=== PATIENT | female | born 1935 | race Caucasian/White ===

== ENCOUNTER 2017-03-13 20:01 | Inpatient (IN) | payer OTHER, BC ==
[~2017-03-13] VITALS: Ht 147.3 cm; Wt 53.2 kg
--- NOTE | ~2017-03-13 | HC ---
[facility] [place] [address] CONSULTATION Name: VINOD HIGHTOWER Room #: 247-P ADM IN M.R.#: [id number] Admission: 03/13/17 Attend Phys: Kurtis Zhang MD Discharge: Date of : 37 Report #: [id number] THIS REPORT FOR: //name// CC: FAM unknown Robbie Garvin Chino Boyd DATE OF SERVICE: 03/14/2017 NEPHROLOGY CONSULTATION REASON FOR CONSULTATION: Acute on chronic kidney disease. HISTORY OF PRESENT ILLNESS: This 81-year-old patient with longstanding diabetes and some degree of underlying kidney disease has presented with a one-week history of nausea, vomiting and daily diarrhea. She has become progressively weak. She has chronic memory impairment and this has been worse. This syndrome persisted and she was brought to the Emergency Room. She was found to have very high creatinine and BUN. According to her , she has been seeing Dr. Goff on a once yearly bases, which would suggest that her underlying kidney disease is not particularly severe. He thinks that Dr. Goff has diagnosed kidney disease due to diabetes. PAST MEDICAL HISTORY: She has had previous coronary bypass, remotely at [facility]. She has had a history of hypertension, dyslipidemia, and hypothyroidism. She also has had sections. HOME MEDICATIONS: Include atorvastatin 40 mg daily, clopidogrel 75 mg daily, citalopram 10 mg daily, insulin, levothyroxine 0.05 mg daily, lisinopril 40 mg daily, metoprolol tartrate 100 mg daily, a bisphosphonate once weekly I believe and Actonel. FAMILY HISTORY: Negative for renal disease and diabetes. SOCIAL HISTORY: No cigarettes or alcohol. Lives at home with her , looks after her. REVIEW OF SYSTEMS: GENERAL: She has been weak and feeling poorly. EYES: Her vision is okay with corrective lenses. ENT: Hearing okay. Denies mouth sores or ulcers. ENDOCRINE: Positive for diabetes and thyroid disease, on replacement. RESPIRATORY: She denies shortness of breath, pleuritic pain or hemoptysis. CARDIAC: Denies chest pain, palpitations or swelling. GASTROINTESTINAL: Positive for nausea, vomiting, diarrhea, but no abdominal pain, poor intake. [facility] [address] [place] [address] CONSULTATION Name: VINOD HIGHTOWER Room #: 247-P [facility] IN M.R.#: [id number] Admission: 03/13/17 Attend Phys: Kurtis Zhang MD Discharge: Date of : 37 Report #: [id number] GENITOURINARY: Denies dysuria or hematuria. Denies history of renal stones. NEUROLOGIC: She says she has had some sort of stroke in the past, but her does not mention and she cannot give specific details. Denies neuropathy or problems with her eyes from the diabetes. She apparently does have memory impairment according to her and my history from her certainly would suggest that is true, although she has acutely ill. PSYCHIATRIC: She is on an antidepressant, I cannot really comment further. Extensive history taken from the patient, patient's and from the electronic medical record. PHYSICAL EXAMINATION: VITAL SIGNS: Somewhat ill appearing, somewhat pale elderly patient, does not appear to be in any acute distress, seen in the ICU. SKIN: Slightly decreased turgor. SKELETAL: Well developed, well nourished, nonobese. HEENT: Extraocular movements full. Vision and hearing intact. Mucous membranes are dry. NECK: Supple, no JVD, carotid bruits or lymphadenopathy. CHEST: Completely clear to auscultation. HEART: Regular without murmurs, gallops or rubs. ABDOMEN: Soft and nontender, without bruits, masses or organomegaly. EXTREMITIES: Show intact pulses. No edema. NEUROLOGIC: Moves all extremities. Memory is somewhat diminished. LABORATORY DATA: The urinalysis did show 2+ protein, 3+ blood, and was very concentrated. White cells and bacteria there as well. The hemoglobin is 13.3, then 12.7. This morning, white count 19.9 and the differential showed no bands. Platelets were 173. Initial sodium 135, potassium 5.1, chloride 103, and bicarbonate 8. This morning, the bicarbonate is 12, chloride is 108 and the sodium is 140, the creatinine is down to 9.2 and sodium from 131, down to 121. Liver functions are okay. Albumin is 2.7. No phosphorus has been assessed at this point. ASSESSMENT: 1. Acute on chronic kidney disease. I suspect her underlying chronic kidney disease is relatively mild as she only sees Dr. Goff once yearly. I will be checking our office records in detail for further inflammation regarding her underlying kidney issues, her acute injury seems to be related to a severe gastrointestinal illness and volume depletion with low blood pressure. The lisinopril at 40 mg per day may certainly contribute to the setting of volume depletion to a prolonged and slow recovery, but likely she will recover with IV fluids adding bicarbonate and not require dialysis or anything of this sort. We will continue that plan. I will check urine sodium and creatinine. She will get a renal sonogram for completeness and paraprotein studies as well as urine protein evaluation. We will follow her carefully and hopefully to see continued recovery and improvement. [facility] [address] [place] [address] CONSULTATION Name: VINOD HIGHTOWER Room #: 247-P [facility] IN .R.#: [id number] Admission: 03/13/17 Attend Phys: Kurtis Zhang MD Discharge: Date of : 36 Report #: [id number] 2. Longstanding diabetes mellitus. 3. History of coronary bypass. 4. Cognitive impairment. <ELECTRONICALLY SIGNED> By: Matthew Rao MD 03/16/17 0718 6 [id number] Robbie Garvin MD /nt
--- NOTE | ~2017-03-13 | H ---
[facility] [place] [address] HISTORY AND PHYSICAL Name: VINOD HIGHTOWER Room #: 446-P ADM IN M.R.#: [id number] Admission: 03/13/17 Attend Phys: Kurtis Zhang MD Discharge: Date of : 36 Report #: [id number] THIS REPORT FOR: //name// CC: FAM unknown Robbie Boyd ATTENDING PHYSICIAN: Dr. Chino Boyd. PRIMARY CARE PHYSICIAN: Dr. Atilio Chinchilla CHIEF COMPLAINT: High blood sugars, decreased appetite. HISTORY OF PRESENT ILLNESS: The patient is an 81-year-old female who has some mild dementia. She apparently had been having 3-4 days of decreased appetite with poor oral intake and high blood sugars. She apparently was still taking her insulin. She has also been having increased frequency of diarrhea. Apparently, she always does have some looser stools with a history of some possible IBS, but her son states that she was having more stools than usual and complained of some abdominal pain. She had not been having any fevers as far as they are aware. EMS was called and she was found to have a blood sugar of 500, was brought into the ER. Her sons are providing most of the history. They do state that she has some chronic kidney disease, they did not know her baseline creatinine, but she has been following with a compensation agent, Dr. Goff for at least 2 years. She has never been on dialysis and apparently her kidneys have been stable. She is currently denying any pain. She remains confused. She thinks it is October 2013, but overall she attempts to answer questions and is able to follow commands. She was evaluated in the ER and admitted for further treatment. PAST MEDICAL HISTORY: Diabetes, dementia, coronary artery disease, hypertension, hyperlipidemia, hypothyroidism. PAST SURGICAL HISTORY: CABG times 5 vessels, left hip repair, left shoulder repair. ALLERGIES: Her son states that she had an anaphylactic reaction, he thinks to MOTRIN, but they are not quite sure, but it should be on their records at [facility]. HOME MEDICATIONS: Plavix 75 mg p.o. daily, Lipitor 40 mg p.o. at bedtime, metoprolol 100 mg p.o. daily, lisinopril 40 mg p.o. daily, Lexapro 10 mg p.o. daily, Lantus unknown dose each evening and Humalog insulin unknown dose a.c. and at bedtime, levothyroxine 50 mcg daily, risedronate 35 mg weekly. SOCIAL HISTORY: The patient lives at home with her spouse. She normally ambulates with a walker. She has a remote history of smoking, but quit over [address] [address] HISTORY AND PHYSICAL Name: VINOD HIGHTOWER Room #: 446-P [facility] IN M.R.#: [id number] Admission: 03/13/17 Attend Phys: Kurtis Zhang MD Discharge: Date of : 37 Report #: [id number] years ago. No alcohol use. Her sons state that they are in the process of looking into some assisted living facility for their mother and father. FAMILY HISTORY: Unobtainable due to altered mental status. REVIEW OF SYSTEMS: Unobtainable due to altered mental status. PHYSICAL EXAMINATION: GENERAL: The patient is an alert, but confused female in no acute distress. VITAL SIGNS: Temperature is 36.5, heart rate 83, respirations 16, blood pressure is 102/36 and oxygen is 97% on room air. HEENT: PERRLA. Sclerae is nonicteric. Oral mucosa is pink and dry. Lips are cracked. NECK: Supple, no JVD noted. CARDIAC: Normal S1, S2. No murmurs, rubs or gallops. RESPIRATORY: Breath sounds are clear bilaterally. No wheezing or rhonchi. Breathing is nonlabored. ABDOMEN: Soft, nondistended, nontender with positive bowel sounds. VASCULAR: No edema noted. She does have cool feet with pedal pulses of 1+. NEUROLOGIC: The patient is somewhat sleepy, but arouses to voice and then remains alert and able to follow commands. She was able to move all extremities equally. She is confused and thinks it is October 2013, but she was aware she was in the hospital and was able to recognize her sons. LABORATORY DATA AND DIAGNOSTICS: WBC is 19.9, hemoglobin 13.3, and platelets 209 with sodium 135, potassium 5.1, BUN 131, creatinine 11.1, glucose 470, anion gap is 24 and troponins negative and ABG showed a pH of 7.13, pCO2 of 22.8, pO2 100 and bicarbonate of 7.5. Lactate is 1.54. UA showed negative ketones, 3+ blood, 2+ protein, 2+ leukocyte esterase, many wbc's and moderate bacteria with trace random glucose. Chest x-ray showed no acute process. ASSESSMENT AND PLAN: 1. Acute renal failure on chronic kidney disease, most recent creatinine is unavailable. We will consult renal for further evaluation and check a renal ultrasound in the morning to further evaluate. She is very acidotic and she is currently on a bicarbonate drip per Renal. Follow labs. 2. Metabolic acidosis due to renal failure. She does have an elevated anion gap, but no ketones in the urine, so this is less likely related to diabetic ketoacidosis. Nephrology is consulted. Continue with bicarbonate drip and repeat an ABG in the morning. 3. Urinary tract infection. We will continue with Zosyn and follow urine culture. 4. Diarrhea. Stool will be sent for Clostridium difficile and culture, her sons do not think she had any recent antibiotic use. 5. Altered mental status. This is likely due to toxic encephalopathy due to urinary tract infection as well as metabolic encephalopathy due to renal failure [facility] [address] [place] [address] HISTORY AND PHYSICAL Name: VINOD HIGHTOWER Room #: 446-P [facility] IN ..#: [id number] Admission: 03/13/17 Attend Phys: Kurtis Zhang MD Discharge: Date of : 36 Report #: [id number] as well as underlying dementia. Continue to monitor. 6. Diabetes type 2, this is uncontrolled. She is not in diabetic ketoacidosis at this time. We will hold off on an insulin drip, but continue with IV fluids and check a hemoglobin A1c, add Accu-Cheks and insulin sliding scale for now, hold off on her home insulin doses until we can clarify her home insulin doses with her pharmacy in the morning. 7. History of hypertension. She is currently hypotensive, which may have contributed to her renal failure. Hold home blood pressure meds and continue with IV fluids. 8. History of coronary artery disease. Troponin is negative and she is denying any chest pain. 9. Hypothyroidism. Check TSH level. Continue Synthroid. 10. Deep venous thrombosis prophylaxis, place sequential compression devices. We will continue to follow the patient closely throughout the hospitalization and make changes based on clinical status. <ELECTRONICALLY SIGNED> By: DEUCE Montgomery 03/18/17 0729 [id number] DEUCE Montgomery /nt
--- NOTE | ~2017-03-13 | HC ---
[facility] [place] [address] CONSULTATION Name: VINOD HIGHTOWER Room #: 446-P ADM IN M.R.#: [id number] Admission: 03/13/17 Attend Phys: Kurtis Zhang MD Discharge: Date of : 36 Report #: [id number] THIS REPORT FOR: //name// CC: FAM unknown Robbie Garvin Kurtis Zhang HISTORY OF PRESENT ILLNESS: The patient is an 81-year-old white female with history of diabetes mellitus, admitted with diarrhea. She was noted to be increasingly dehydrated and had a blood sugar of 500. She was diagnosed with [id number] renal insufficiency with a creatinine at 11. Her hemoglobin A1c was 6.7. She was diagnosed with viral gastroenteritis gastric with C. diff negative. She has been hydrated with nephrology involved and her creatinine has improved nicely and the last check was 3.1. There is some depression that was noted and her antidepressant medication was increased. We are seeing her in rehabilitation medicine consultation. PAST MEDICAL HISTORY: Includes some dementia. She has been living with her spouse and per notes has begun to develop some paranoia with the spouse. She also has a history of irritable bowel syndrome, chronic kidney disease, hypertension. MEDICATIONS: Please see the full medication listing. PAST SURGICAL HISTORY: Includes coronary artery bypass grafting x 5, left hip repair, left shoulder repair. ALLERGIES: MOTRIN. FAMILY HISTORY: Was not sure. REVIEW OF SYSTEMS: Did not offer any current complaints of chest pain, shortness of breath or abdominal discomfort. She notes she is feeling better. No focal joint pain complaints. SOCIAL HISTORY: Lives at home with her spouse. She normally ambulates with a walker. The family is looking into an assisted living facility. HABITS: Remote history of tobacco. No history of alcohol use. FAMILY HISTORY: Unobtainable with her mental status. PHYSICAL EXAMINATION: GENERAL: An 81-year-old white female in no obvious distress. The patient is alert, pleasant. VITAL SIGNS: Last recorded temperature 36.9, pulse 108, respirations 20, blood pressure 164/84. [facility] [address] [place] [address] CONSULTATION Name: VINOD HIGHTOWER Room #: 446-P [facility] IN M.R.#: [id number] Admission: 03/13/17 Attend Phys: Kurtis Zhang MD Discharge: Date of : 36 Report #: [id number] HEENT: Appeared to be benign. NEUROLOGIC: Cranial nerves are grossly intact. Facies are symmetric. EXTREMITIES: She has functional range of motion of both upper extremities without obvious focal weakness. DTRs are 1. Lower extremities, no focal calf swelling. Functional range of motion with strength grade 4-/5. DTRs are trace to 1. She was mod assist with sit to stand transfers. Gait was mod assist pivot with a front-wheeled walker. She is noted to be very unsteady. ASSESSMENT: An 81-year-old white female with the following problems: 1. Generalized weakness and debilitation. 2. Viral gastroenteritis. 3. Acute renal insufficiency superimposed on chronic kidney disease, which is improving. 4. Diabetes mellitus. 5. Depression. 6. Dementia. She was having increasing paranoia at home with her . 7. Depression. 8. Past history of coronary artery bypass grafting. 9. Diarrhea has improved. Negative for C. diff. PLAN: Would recommend a skilled facility stay as most appropriate for this patient. Note that they are looking into assisted living facility options and the increasing paranoia that the patient has had with her in the home setting. Case management has been involved looking at skilled facility options including [facility] and in agreement with this plan. Thank you for asking us to assist in this patient's care. By: [id number] Mir Shine MD /nt
--- NOTE | ~2017-03-13 | EKG ---
[place] [address] [address] [facility] [place] [address] ELECTROCARDIOGRAM REPORT Name: VINOD HIGHTOWER Room #: 247-P ADM IN M.R.#: [id number] Admission: 03/13/17 Attend Phys: Chino Boyd MD Discharge: Date of : 36 Report #: [id number] THIS REPORT FOR: //name// [facility] ED Test Date: 2017-03-13 Test Time: 20:25:47 Pat Name: VINOD HIGHTOWER Department: Room: [facility] Gender: F [employer] Maintenance Worker: Melanie LAGUERRE : 1935 Requested By: Herman Adamson Order Number: [id number] MD: Jeremy Escamilla Measurements Intervals [place] Rate: 79 P: 44 [place]: 137 QRS: 40 QRSD: 100 T: -43 QT: 394 QTc: 452 Interpretive Statements Sinus rhythm Abnormal R-wave progression, early transition Inferior infarct, age indeterminate No previous ECG available for comparison Electronically Signed On 03-14-2017 15:59:59 CDT by Jeremy Escamilla [email or web address] <ELECTRONICALLY SIGNED> By: Jeremy Escamilla MD, [facility] 03/14/17 1559 24 24 Jeremy Escamilla MD, [facility] /EPI
[2017-03-13 20:03] VITALS: BP 102/36
[2017-03-13 20:29] LABS: HEMATOCRIT 41.3 % (37.0-47.0); HEMOGLOBIN 13.3 gm/dL (12.0-15.0); MCH 30.2 pg (26.0-34.0); MCHC 32.3 g/dL (28.0-37.0); MCV 93.6 fL (80.0-100.0); PLATELET COUNT 209 thou/uL (150-400); RBC 4.41 mil/uL (4.20-5.00); RDW 14.6 % (10.5-14.5); WBC 19.9 thou/uL (4.0-11.0)
[2017-03-13 20:32] LABS: MANUAL DIFF YES
[2017-03-13 20:39] LABS: ABG COMMENT ROOM AIR; ABG SAMPLE TYPE ARTERIAL; BE(vivo) -19.9 mmol/L (-2 to +3); HCO3 7.5 mmol/L (22.0-26.0); LACTATE 1.54 mmol/L (0.5-2.0); O2(CT) 18.9 mL/dL (15.0-23.0); O2Hb 95.7 % (92.0-98.0); PCO2 22.8 mmHg (35.0-45.0); PO2 100.6 mmHg (80.0-100.0); STICK SITE R.RADIAL; pH 7.133 (7.360-7.450); sO2 95.8 % (92.0-98.0); tCO2 8.2 mmol/L (24.0-30.0)
[2017-03-13 20:46] LABS: ANION GAP 24 mmol/L (7-16); BUN 131 mg/dL (7-18); CALCIUM 8.5 mg/dL (8.5-10.1); CHLORIDE 103 mmol/L (98-107); CREATININE 11.1 mg/dL (0.6-1.0); GLUCOSE 470 mg/dL (74-106); POTASSIUM 5.1 mmol/L (3.5-5.1); SODIUM 135 mmol/L (136-145); TROPONIN-I < 0.04 ng/mL (<0.04-0.07)
[2017-03-13 20:50] LABS: CO2 8 mmol/L (21-32)
[2017-03-13 21:20] LABS: URINE BLOOD 3+ (Negative); URINE COLOR YELLOW; URINE GLUCOSE-RANDOM* TRACE (Negative); URINE KETONES NEGATIVE (Negative); URINE LEUKOCYTES-REFLEX 2+ (Negative); URINE PROTEIN (DIPSTICK) 2+ (Negative); URINE SPECIFIC GRAVITY >= 1.030 (1.003-1.035); URINE UROBILINOGEN 0.2 E.U./dl (0.2-1.0)
[2017-03-13 21:22] LABS: ICTOTEST (BILI CONFIRMATORY) Negative (Negative); URINE BILIRUBIN NEGATIVE (Negative)
[2017-03-13 21:24] LABS: ABSOLUTE NEUTROPHILS 16.3 thou/uL (1.4-8.2); TOTAL CELL COUNT 100
[2017-03-13 21:25] LABS: ANISOCYTOSIS SLIGHT
[2017-03-13 21:44] LABS: CASTS None Seen /LPF (None Seen); CRYSTALS None Seen /LPF (None Seen); SQUAMOUS None Seen /LPF (0-3); URINE WBC-REFLEX >25 Many /HPF (0-5)
[2017-03-13] MEDS ORDERED: RISEDRONATE SOD35 M1 PO (22:31)
[2017-03-13] MEDS ORDERED: ATORVASTATIN CA40 MG PO (22:32)
[2017-03-13] MEDS ORDERED: LOPRESSOR100 M1 PO (22:32)
[2017-03-13] MEDS ORDERED: PLAVIX 75 MG TA75 M1 PO (22:32)
[2017-03-13] MEDS ORDERED: LISINOPRIL40 MG PO (22:33)
[2017-03-13] MEDS ORDERED: LANTUS SOL100 UNIT/1 SQ (22:33)
[2017-03-13] MEDS ORDERED: ESCITALOPRAM OX10 MG PO (22:33)
[2017-03-13] MEDS ORDERED: HUMALOG PE100 UNIT/M SC (22:34)
[2017-03-13 23:05] VITALS: BP 124/61
[2017-03-13 23:15] VITALS: BP 123/66
[2017-03-13 23:30] VITALS: BP 118/56
[2017-03-14] VITALS (22 sets, daily range): BP systolic 94–139; BP diastolic 46–102
[2017-03-14] MEDS ORDERED: LEVOTHYROXINE0.05 MG PO (00:22)
[2017-03-14 05:33] LABS: HEMATOCRIT 39.3 % (37.0-47.0); HEMOGLOBIN 12.7 gm/dL (12.0-15.0); MCH 29.8 pg (26.0-34.0); MCHC 32.3 g/dL (28.0-37.0); MCV 92.2 fL (80.0-100.0); RBC 4.26 mil/uL (4.20-5.00); RDW 14.5 % (10.5-14.5)
[2017-03-14 05:36] LABS: ABG SAMPLE TYPE ARTERIAL; BE(vivo) -16.1 mmol/L (-2 to +3); LACTATE 0.92 mmol/L (0.5-2.0); O2(CT) 17.6 mL/dL (15.0-23.0); O2Hb 95.7 % (92.0-98.0); PO2 102.9 mmHg (80.0-100.0); sO2 96.7 % (92.0-98.0); tCO2 10.7 mmol/L (24.0-30.0)
[2017-03-14 05:37] LABS: STICK SITE L.BRACHIAL; pH 7.218 (7.360-7.450)
[2017-03-14 05:56] LABS: ALBUMIN 2.7 g/dL (3.4-5.0); CALCIUM 7.7 mg/dL (8.5-10.1); DIRECT BILIRUBIN 0.1 mg/dL (<0.1-0.3); TOTAL BILIRUBIN 0.5 mg/dL (<0.1-1.0); TOTAL PROTEIN 6.2 g/dL (6.4-8.2)
[2017-03-14 05:58] LABS: CREATININE 9.2 mg/dL (0.6-1.0); POTASSIUM 4.1 mmol/L (3.5-5.1)
[2017-03-14 18:11] LABS: URINE PROTEIN-RANDOM* 98.9 mg/dL (Not Estab.)
[2017-03-15] VITALS (9 sets, daily range): BP systolic 93–157; BP diastolic 44–68
[2017-03-15 05:50] LABS: ALBUMIN 2.4 g/dL (3.4-5.0); CALCIUM 7.4 mg/dL (8.5-10.1); PHOSPHORUS 6.9 mg/dL (2.5-4.9); POTASSIUM 3.3 mmol/L (3.5-5.1)
[2017-03-15 05:58] LABS: CREATININE 6.9 mg/dL (0.6-1.0)
[2017-03-15 14:08] LABS: KAPPA/LAMBDA RATIO 2.29 (0.26-1.65); LAMBDA FREE LIGHT CHAINS 42.8 mg/L (5.7-26.3)
[2017-03-16 04:11] LABS: GLYCOHEMOGLOBIN (HGB A1C) 6.7 % (4.8-5.6)
[2017-03-16 04:25] LABS: ABSOLUTE NEUTROPHILS 7.8 thou/uL (1.4-8.2); BASOPHILS 0.8 % (0.0-2.0); EOSINOPHILS 2.1 % (0.0-3.0); HEMATOCRIT 36.5 % (37.0-47.0); HEMOGLOBIN 12.1 gm/dL (12.0-15.0); LYMPHOCYTES 26.4 % (24.0-44.0); MCH 30.2 pg (26.0-34.0); MCHC 33.3 g/dL (28.0-37.0); MCV 90.9 fL (80.0-100.0); MONOCYTES 8.9 % (1.0-8.0); PLATELET COUNT 150 thou/uL (150-400); POLYS 61.8 % (36.0-66.0); RBC 4.01 mil/uL (4.20-5.00); RDW 14.7 % (10.5-14.5); WBC 12.7 thou/uL (4.0-11.0)
[2017-03-16 04:31] LABS: MANUAL DIFF NO
[2017-03-16 04:37] LABS: ALBUMIN 2.1 g/dL (3.4-5.0); CALCIUM 7.3 mg/dL (8.5-10.1); PHOSPHORUS 4.5 mg/dL (2.5-4.9); POTASSIUM 3.6 mmol/L (3.5-5.1)
[2017-03-16 04:39] LABS: CREATININE 4.6 mg/dL (0.6-1.0)
[2017-03-16 16:19] VITALS: BP 155/65
[2017-03-16 20:25] VITALS: BP 168/74
[2017-03-17 04:40] VITALS: BP 148/64
[2017-03-17 05:40] LABS: ABSOLUTE NEUTROPHILS 8.4 thou/uL (1.4-8.2); BASOPHILS 0.4 % (0.0-2.0); EOSINOPHILS 2.4 % (0.0-3.0); HEMOGLOBIN 11.4 gm/dL (12.0-15.0); LYMPHOCYTES 19.4 % (24.0-44.0); MCH 30.1 pg (26.0-34.0); MCHC 33.4 g/dL (28.0-37.0); MCV 90.3 fL (80.0-100.0); MONOCYTES 10.6 % (1.0-8.0); PLATELET COUNT 150 thou/uL (150-400); POLYS 67.2 % (36.0-66.0); RBC 3.77 mil/uL (4.20-5.00); RDW 14.4 % (10.5-14.5); WBC 12.6 thou/uL (4.0-11.0)
[2017-03-17 05:50] LABS: MANUAL DIFF NO
[2017-03-17 05:58] LABS: ALBUMIN 2.2 g/dL (3.4-5.0); CALCIUM 7.4 mg/dL (8.5-10.1); PHOSPHORUS 3.1 mg/dL (2.5-4.9); POTASSIUM 3.9 mmol/L (3.5-5.1)
[2017-03-17 06:00] LABS: CREATININE 3.1 mg/dL (0.6-1.0)
[2017-03-17 08:53] VITALS: BP 164/84
[2017-03-17 16:17] VITALS: BP 153/67
[2017-03-17 20:10] VITALS: BP 158/71
[2017-03-18 03:10] VITALS: BP 139/59
[2017-03-18 07:12] LABS: HEMATOCRIT 32.7 % (37.0-47.0); HEMOGLOBIN 10.8 gm/dL (12.0-15.0); MCHC 33.1 g/dL (28.0-37.0); MCV 90.7 fL (80.0-100.0); RBC 3.6 mil/uL (4.20-5.00); RDW 14.2 % (10.5-14.5); WBC 11.3 thou/uL (4.0-11.0)
[2017-03-18 07:29] LABS: ALBUMIN 2.1 g/dL (3.4-5.0); CALCIUM 7.6 mg/dL (8.5-10.1); CREATININE 2.4 mg/dL (0.6-1.0); POTASSIUM 4.1 mmol/L (3.5-5.1)
[2017-03-18 08:00] VITALS: BP 175/84
[2017-03-18 16:31] VITALS: BP 149/61
[2017-03-18 20:10] VITALS: BP 144/87
[2017-03-18 20:19] VITALS: BP 162/71
[2017-03-19 03:13] VITALS: BP 165/73
[2017-03-19 05:44] LABS: HEMATOCRIT 33.9 % (37.0-47.0); HEMOGLOBIN 11.3 gm/dL (12.0-15.0); MCH 30.4 pg (26.0-34.0); MCHC 33.3 g/dL (28.0-37.0); MCV 91.1 fL (80.0-100.0); RBC 3.72 mil/uL (4.20-5.00); RDW 14.5 % (10.5-14.5); WBC 12.1 thou/uL (4.0-11.0)
[2017-03-19 06:04] LABS: ALBUMIN 2.3 g/dL (3.4-5.0); CALCIUM 7.5 mg/dL (8.5-10.1); CREATININE 2.3 mg/dL (0.6-1.0); PHOSPHORUS 1.9 mg/dL (2.5-4.9); POTASSIUM 4.3 mmol/L (3.5-5.1)
[2017-03-19 08:00] VITALS: BP 168/75
[2017-03-19] MEDS ORDERED: KEFLEX500 MG PO (12:57)
[2017-03-19 17:08] LABS: ALBUMIN 2.7 g/dL (2.9-4.4); ALPHA 1 0.2 g/dL (0.0-0.4); ALPHA 2 0.9 g/dL (0.4-1.0)
[2017-03-19 17:09] LABS: BETA 0.8 g/dL (0.7-1.3); GAMMA 0.6 g/dL (0.4-1.8); M-SPIKE Not Observed g/dL (Not Observed)
== END 2017-03-19 15:41 | DRG 871 ==
LOC: ER 20:01 → ICU 21:57 → EROBS 21:57 → ICU 23:01 → 4S 03-16 14:20
PROVIDERS: Emergency Medicine; Internal Medicine Endocrinology, Diabetes & Metabolism; Internal Medicine Nephrology; Nurse Practitioner Acute Care
DX: A41.9 Sepsis, unspecified organism (principal); G92 Toxic encephalopathy; N17.9 Acute kidney failure, unspecified; N39.0 Urinary tract infection, site not specified; E46 Unspecified protein-calorie malnutrition; K92.2 Gastrointestinal hemorrhage, unspecified; A08.4 Viral intestinal infection, unspecified; I12.9 Hypertensive chronic kidney disease with stage 1 through stage 4 chronic kidney disease, or unspecified chronic kidney disease; E11.22 Type 2 diabetes mellitus with diabetic chronic kidney disease; E11.65 Type 2 diabetes mellitus with hyperglycemia; F32.9 Major depressive disorder, single episode, unspecified; N18.9 Chronic kidney disease, unspecified; G30.9 Alzheimer's disease, unspecified; I25.10 Atherosclerotic heart disease of native coronary artery without angina pectoris; E87.6 Hypokalemia; F02.80 Dementia in other diseases classified elsewhere, unspecified severity, without behavioral disturbance, psychotic disturbance, mood disturbance, and anxiety; E78.5 Hyperlipidemia, unspecified; E03.9 Hypothyroidism, unspecified; Z79.4 Long term (current) use of insulin; Z68.24 Body mass index [BMI] 24.0-24.9, adult; Z88.6 Allergy status to analgesic agent; Z87.891 Personal history of nicotine dependence; Z79.899 Other long term (current) drug therapy; Z87.81 Personal history of (healed) traumatic fracture
CPT/HCPCS: 10078; 10100